=== PATIENT | female | born 1960 | race Caucasian/White ===

== ENCOUNTER → 2020-09-03 | Outpatient (CLI) | payer BC ==
--- NOTE | 2020-09-03 14:54 | MR ---
EXAMINATION TYPE: MR knee RT wo con DATE OF EXAM: 09/03/2020 COMPARISON: None HISTORY: Right knee pain Multiplanar multiecho imaging of the right knee was performed without contrast. The anterior and posterior cruciate ligaments are intact. There is a mild to moderate knee joint effu millie. The collateral ligaments are intact. I see no bony destructive process. There is no evidence of a fracture. There is increased signal in the inferior aspect of the posterior horn lateral meniscus consistent with a vertical tear. There is small horizontal tear on the inferior surface of the systems integrator ior horn of the medial meniscus. There is no evidence of a soft tissue mass. Knee joint spaces are fairly normal. IMPRESSION: Mild knee joint effusion. Horizontal tear of the posterior horn medial meniscus on the inferior surface. Vertical tear of the free margin of the posterior horn of the lateral meniscus.
== END | disposition home or self-care (01) ==
LOC: RADMRIMAIN 12:27
PROVIDERS: ATTEND Family Medicine
DX: S83.241A Other tear of medial meniscus, current injury, right knee, initial encounter (principal); S83.281A Other tear of lateral meniscus, current injury, right knee, initial encounter

== ENCOUNTER → 2024-10-19 | Outpatient (CLI) | payer BC ==
--- NOTE | 2024-10-19 16:23 | US ---
EXAMINATION TYPE: US pelvis complete transvag DATE OF EXAM: 10/19/2024 COMPARISON: NONE CLINICAL INDICATION: Female, 64 years old with history of N84.1 POLYP OF CERVIX UTERI; TECHNIQUE: Transvaginal (TV) and Transabdominal (TA) . Transabdominal grayscale sonographic images of the pelvis were acquired. Transvaginal sonographic im ages were medically necessary to better assess the following anatomy: Known polyps per pt dr Doppler imaging: Not performed. FINDINGS: EXAM MEASUREMENTS: Uterus: 5.9x2.2x3.7 cm Endometrial Stripe: 0.5 cm Right Ovary: Not visualized due to bowel gas. cm Left Ovary: Not visualized due to bowel gas. cm limited study due to overlying bowel/gas 1. Uterus: Anteverted Heterogenous 2. Endometrium: Multiple echogenic areas seen, Largest: 0.2x0.2x0.2cm 3. Right Ovary: Obscured by overlying bowel gas 4. Left Ovary: Obscured by overlying bowel gas 5. Bilateral Adnexa: wnl 6. Posterior cul-de-sac: wnl Bladder is sonolucent IMPRESSION: 1. Small echogenic foci within the endometrial canal may be polyps. O-RADS 2021 [email or web address] [email or web address], , 10/19/2024 4:21 PM
== END | disposition home or self-care (01) ==
LOC: RADUSWWP 14:12
PROVIDERS: ATTEND Family Medicine
DX: N84.1 Polyp of cervix uteri (principal)
CPT/HCPCS: 76830; 76856